=== PATIENT | male | born 1960 | race Caucasian/White ===

== ENCOUNTER → 2021-01-16 | Outpatient (CLI) | payer MEDICARE ==
[~2021-01-16] MED LIST: CONTRAST GIVEN. MC PRN
[2021-01-16] MEDS: IOHEXOL 300 MG/ML 100ML VIAL. IV ONE (12:28)
[2021-01-16] MEDS: IOHEXOL 240 MG/ML 50ML VIAL. PO ONE (12:28)
--- NOTE | 2021-01-16 13:25 | KCIC ---
EXAM: Abdomen and pelvis CT with intravenous contrast. HISTORY: Non-Hodgkin's lymphoma. Stomach cancer. Inguinal hernia repair. Renal cyst. TECHNIQUE: Computed tomographic images of the abdomen and pelvis were obtained following the administ ration of intravenous contrast. Multiplanar reformatting was performed. *One or more of the following individualized dose reduction techniques were utilized for this examina tion: 1. Automated exposure control. 2. Adjustment of the mA and/or kV according to patient size. 3. Use of iterative reconstruction technique. COMPARISON: MRI dated 10/16/[address] dated 09/24/2019. FINDINGS: Evaluation of the lower thorax demonstrates left basilar and posterior dependent atelectasi s. There are suspected uncleared secretions within left lower lobe bronchi. No infiltrate is seen. No hepatic lesion is seen. The gallbladder, pancreas and adrenal glands are unremarkable. There is a sp lenule adjacent to an otherwise unremarkable spleen. The stomach is unremarkable. There is no evidenc e of bowel obstruction. There is a large amount stool within the proximal colon. The bladder is unrem arkable. The prostate is prominent in size. There are also prominent seminal vesicles. The aorta is n ormal in caliber. No pathologically enlarged lymph node is seen. There is a focus of posterior right renal cortical scarring. The previously demonstrated cystic lesio n in this location is less conspicuous compared to the prior exam. There are small hypodense lesions within both kidneys, the appearance of which favors cysts. The largest cyst is seen within the mid zo ne of the left kidney measuring 10 mm. The previously demonstrated thick walled cyst within the lower pole of the left kidney has significantly decreased in size, now measuring approximately 4 mm. No kennedy spicious lesion is seen. There is degenerative change involving the lumbar spine, primarily the lumbo sacral junction. No suspicious osseous lesion is seen. IMPRESSION: 1. No acute abdominal or pelvic finding or evidence of reported non-Hodgkin's lymphoma or stomach can cer. 2. Multiple small renal cysts, characterized on the prior MRI. There has been significant interval de crease in a cyst within the lower pole the left kidney compared to the prior study, confirming benign ity. No suspicious renal lesion is seen on this exam. Electronically signed by: Elvia Barnett MD (01/16/2021 1:23 PM) [id number]
== END ==
LOC: KCIC CT 10:35
PROVIDERS: ATTEND Nurse Practitioner Gerontology
DX: N28.1 Cyst of kidney, acquired (principal); R63.4 Abnormal weight loss; Z85.72 Personal history of non-Hodgkin lymphomas
CPT/HCPCS: 74177; Q9966; Q9967